=== PATIENT | female | born 1960 | race Caucasian/White ===

== ENCOUNTER 2019-09-18 11:27 | Emergency (ER) | payer OTHER, BC ==
[~2019-09-18] VITALS: Ht 160 cm; Wt 68.0 kg
[2019-09-18 13:03] LABS: BASOPHILS % 0.9 % (0.0-2.0); EOSINOPHILS % 1.2 % (0.0-5.0); HEMATOCRIT. 36.8 % (36.0-48.0); HEMOGLOBIN. 12.7 g/dL (12.0-16.0); LYMPHOCYTES % 36.5 % (20.0-50.0); MEAN CORPUSCULAR HEMOGLOBIN 32.8 pg (28.0-32.0); MEAN CORPUSCULAR VOLUME 95.4 fL (81.0-99.0); MONOCYTES % 6.8 % (2.0-8.0); NEUTROPHILS % 54.6 % (40.0-76.0); PLATELET 263 x1000/uL (130-400); RED BLOOD CELL COUNT 3.86 mill/uL (4.2-5.4); RED CELL DISTRIBUTION WIDTH 13.9 % (11.6-14.6)
[2019-09-18 13:09] LABS: CHLORIDE 108 mEq/L (98-107)
[2019-09-18] MEDS ORDERED: MORPHINE SULFATE 4 MG/ML CPJ (NOT FOR IM USE) IV ONE (13:45)
[2019-09-18] MEDS ORDERED: KETOROLAC 15MG/ML VIAL IV ONE (16:15)
[2019-09-18 17:15] VITALS: BP 131/61
== END 2019-09-18 17:30 | disposition home or self-care (01) ==
LOC: ER 11:27
DX: M79.605 Pain in left leg (principal); R51 Headache; M54.9 Dorsalgia, unspecified; M79.10 Myalgia, unspecified site; R42 Dizziness and giddiness; R11.10 Vomiting, unspecified; M25.562 Pain in left knee; E78.00 Pure hypercholesterolemia, unspecified; Z88.0 Allergy status to penicillin; V49.88XA Car occupant (driver) (passenger) injured in other specified transport accidents, initial encounter; Y93.89 Activity, other specified; Y92.89 Other specified places as the place of occurrence of the external cause; Y99.8 Other external cause status
CPT/HCPCS: 36415; 70450; 71045; 73552; 73560; 73590; 74176; 80053; 84484; 85025; 93005; 96374; 96375; 99285; J1885; J2270